=== PATIENT | male | born 1970 | race Caucasian/White ===

== ENCOUNTER 2018-11-25 12:17 | Emergency (ER) | payer SELFPAY ==
[~2018-11-25] VITALS: Ht 177.8 cm; Wt 74.7 kg
[2018-11-25 12:30] VITALS: BP 147/92; PULSE 18; RESP 20; Ht 177.8 cm; Wt 74.7 kg
== END 2018-11-25 18:26 | disposition left against medical advice (07) ==
LOC: E/R 12:17
DX: Z53.21 Procedure and treatment not carried out due to patient leaving prior to being seen by health care provider (principal)

== ENCOUNTER 2018-11-28 08:53 | Emergency (ER) | payer SELFPAY ==
[~2018-11-28] VITALS: Ht 182.9 cm; Wt 70.0 kg
[2018-11-28 09:01] VITALS: BP 140/96; PULSE 84; RESP 16; Ht 182.9 cm; Wt 70.0 kg
== END 2018-11-28 10:16 | disposition left against medical advice (07) ==
LOC: FTE 08:53
DX: Z53.21 Procedure and treatment not carried out due to patient leaving prior to being seen by health care provider (principal)

== ENCOUNTER 2018-12-06 22:20 | Emergency (ER) | payer SELFPAY ==
[~2018-12-06] VITALS: Ht 177.8 cm; Wt 74.6 kg
[2018-12-06 22:22] VITALS: BP 145/77; PULSE 115; RESP 19; Ht 177.8 cm; Wt 74.6 kg
== END 2018-12-06 23:09 | disposition left against medical advice (07) ==
LOC: FTE 22:20
DX: Z53.21 Procedure and treatment not carried out due to patient leaving prior to being seen by health care provider (principal)

== ENCOUNTER 2018-12-16 01:26 | Emergency (ER) | payer SELFPAY | END 2018-12-16 01:41 | disposition left against medical advice (07) | LOC: E/R 01:26 | DX: Z53.21 Procedure and treatment not carried out due to patient leaving prior to being seen by health care provider (principal) ==

== ENCOUNTER 2019-01-05 22:48 | Emergency (ER) | payer SELFPAY | END 2019-01-05 22:50 | disposition left against medical advice (07) | LOC: E/R 22:48 | DX: Z53.21 Procedure and treatment not carried out due to patient leaving prior to being seen by health care provider (principal) ==

== ENCOUNTER 2019-01-09 18:01 | Emergency (ER) | payer SELFPAY | END 2019-01-09 18:45 | disposition left against medical advice (07) | LOC: E/R 18:01 | DX: Z53.21 Procedure and treatment not carried out due to patient leaving prior to being seen by health care provider (principal) ==

== ENCOUNTER 2019-01-11 13:02 | Emergency (ER) | payer SELFPAY ==
[~2019-01-11] VITALS: Ht 175.3 cm; Wt 76.3 kg
[2019-01-11 13:13] VITALS: BP 153/81; PULSE 105; RESP 18; Ht 175.3 cm; Wt 76.3 kg
== END 2019-01-12 00:08 | disposition left against medical advice (07) ==
LOC: E/R 13:02
DX: Z53.21 Procedure and treatment not carried out due to patient leaving prior to being seen by health care provider (principal)

== ENCOUNTER 2019-01-12 11:12 | Emergency (ER) | payer MEDICARE, OTHER ==
[~2019-01-12] VITALS: Wt 80.0 kg
[2019-01-12 11:37] VITALS: Wt 80.0 kg
--- NOTE | 2019-01-12 13:40 | ERD ---
ER Documentation Chief Complaint Chief Complaint HERE YESTERDAY, WANTS "TO HAVE CHECK UP", BIZZARRE BEHAVIOR, NOT SUICIDAL HPI This is a 48-year-old male who is here because he wants a checkup. He says is been feeling a little bit tired and wants to get checked out to make sure his blood is okay. He is asking for referral from me to a half-way so he can have some more to stay. He has no headache chest pain shortness of breath no fever cough no abdominal pain no GI symptoms no neurological symptoms ROS All systems reviewed and are negative except as per history of present illness. Medications Home Meds No Active Prescriptions or Reported Meds Allergies Allergies: Coded Allergies: risperidone (Verified Allergy, Unknown, 01/12/19) PMhx/Soc Medical and Surgical Hx: pt denies Surgical Hx History of Surgery: No Anesthesia Reaction: No Hx Neurological Disorder: No Hx Respiratory Disorders: No Hx Cardiac Disorders: No Hx Psychiatric Problems: Yes (pt on psych medications does not state for what) Hx Miscellaneous Medical Probl: No Hx Substance Use: No Hx Tobacco Use: Yes (1pack/day) Smoking Status: Current every day smoker FmHx Family History: No coronary disease Physical Exam Vitals Vital Signs Date Temp Pulse Resp B/P (MAP) Pulse Ox O2 O2 Flow FiO2 Time Delivery Rate 01/12/19 98.6 91 20 128/99 100 Room Air 12:28 (109) 01/12/19 98.6 99 18 139/78 99 11:37 (98) Physical Exam Const: Well-developed, well-nourished Head: Atraumatic, normocephalic Eyes: Normal Conjunctiva, PERRLA, EOMI, normal sclera, no nystagmus ENT: Normal External Ears, Nose and Mouth, moist mucus membranes. Neck: Full range of motion. No meningismus, no lymphadenopathy. Resp: Clear to auscultation bilaterally, no wheezing, rhonchi, rales Cardio: Regular rate and rhythm, no murmurs, S1 S2 present Abd: Soft, non tender x 4, non distended. Normal bowel sounds, no guarding or rebound, no pulsitile abdominal masses or bruits Skin: No petechiae or rashes, no ecchymosis , no maculopapular rash Back: No midline or flank tenderness Ext: No cyanosis, or edema, FROM x 4, normal inspection, neurovascularly intact x 4 Neur: Awake and alert, STR 5/5 x 4, sensation intact x 4, no focal findings, cerebellum intact Psych: Normal Mood and Affect Result Diagram: 01/12/19 1225 01/12/19 1225 Results 24 hrs Laboratory Tests Test 01/12/19 12:25 White Blood Count 11.3 10^3/ul Red Blood Count 5.75 10^6/ul Hemoglobin 16.7 g/dl Hematocrit 48.9 % Mean Corpuscular Volume 85.0 fl Mean Corpuscular Hemoglobin 29.0 pg Mean Corpuscular Hemoglobin Concent 34.2 g/dl Red Cell Distribution Width 14.1 % Platelet Count 284 10^3/UL Mean Platelet Volume 9.1 fl Immature Granulocytes % 0.500 % Neutrophils % 66.6 % Lymphocytes % 22.0 % Monocytes % 8.1 % Eosinophils % 2.0 % Basophils % 0.8 % Nucleated Red Blood Cells % 0.0 /100WBC Immature Granulocytes # 0.060 10^3/ul Neutrophils # 7.5 10^3/ul Lymphocytes # 2.5 10^3/ul Monocytes # 0.9 10^3/ul Eosinophils # 0.2 10^3/ul Basophils # 0.1 10^3/ul Nucleated Red Blood Cells # 0.0 10^3/ul Sodium Level 143 mmol/L Potassium Level 4.3 mmol/L Chloride Level 111 mmol/L Carbon Dioxide Level 24 mmol/L Anion Gap 8 Blood Urea Nitrogen 29 mg/dl Creatinine 1.72 mg/dl Est Glomerular Filtrat Rate mL/min 42 mL/min Glucose Level 103 mg/dl Calcium Level 10.1 mg/dl Total Bilirubin 0.3 mg/dl Direct Bilirubin 0.00 mg/dl Indirect Bilirubin 0.3 mg/dl Aspartate Amino Transf (AST/SGOT) 24 IU/L Alanine Aminotransferase (ALT/SGPT) 12 IU/L Alkaline Phosphatase 106 IU/L Troponin I < 0.012 ng/ml Total Protein 8.6 g/dl Albumin 4.5 g/dl Globulin 4.10 g/dl Albumin/Globulin Ratio 1.09 Procedures/MDM Patient's labs are relatively unremarkable he does have bit of prerenal azotemia. Advised him to drink more water. Will discharge home Departure Diagnosis: Primary Impression: Fatigue Fatigue type: unspecified Qualified Codes: R53.83 - Other fatigue Condition: Stable Patient Instructions: Generalized Weakness Additional Instructions: please drink more water KALE MARROQUIN DO January 12, 2019 13:40
[2019-01-12 14:39] VITALS: BP 122/82; PULSE 90; RESP 20
== END 2019-01-12 14:42 | disposition home or self-care (01) ==
LOC: E/R 11:12
DX: R53.83 Other fatigue (principal); F17.210 Nicotine dependence, cigarettes, uncomplicated
CPT/HCPCS: 36415; 80053; 84484; 85025; 99283

== ENCOUNTER 2019-01-13 15:02 | Emergency (ER) | payer MEDICARE ==
[~2019-01-13] VITALS: Wt 73.8 kg
[2019-01-13 15:44] VITALS: BP 140/94; PULSE 95; RESP 20
--- NOTE | 2019-01-13 20:56 | ERD ---
ER Documentation Chief Complaint Chief Complaint requesting STD workup; denies symptoms, unsure of GF's symptoms HPI 48-year-old male presenting to the emergency department requesting STD s creening. He has multiple female sexual partners and he is unsure of their status. He denies any penile discharge, fevers, chills, lesions on the penis or other symptoms at this time. ROS All systems reviewed and are negative except as per history of present illness. Medications Home Meds No Active Prescriptions or Reported Meds Allergies Allergies: Coded Allergies: risperidone (Verified Allergy, Unknown, 01/12/19) PMhx/Soc History of Surgery: No Anesthesia Reaction: No Hx Neurological Disorder: No Hx Respiratory Disorders: No Hx Cardiac Disorders: No Hx Psychiatric Problems: Yes (pt on psych medications does not state for what) Hx Miscellaneous Medical Probl: No Hx Alcohol Use: No Hx Substance Use: No Hx Tobacco Use: Yes (1pack/day) Smoking Status: Current every day smoker FmHx Family History: No diabetes Physical Exam Vitals Vital Signs Date Temp Pulse Resp B/P (MAP) Pulse Ox O2 O2 Flow FiO2 Time Delivery Rate 01/13/19 98.2 95 20 140/94 97 15:44 (109) Physical Exam Const: No acute distress Head: Atraumatic Eyes: Normal Conjunctiva ENT: Normal External Ears, Nose and Mouth. Neck: Full range of motion. No meningismus. Resp: No respiratory distress. Skin: No petechiae or rashes Ext: No cyanosis, or edema Neur: Awake and alert Psych: Normal Mood and Affect Procedures/MDM 48-year-old male presenting to the emergency department requesting STD screening. He will be tested for chlamydia and gonorrhea. He is asymptomatic and did not require prophylactic treatment at this time. He is stable and appropriate for discharge and further outpatient management with his primary care physician. He was instructed to return to the department immediately if he has any new or concerning symptoms. Patient's blood pressure was elevated (>120/80) but appears stable without evidence of hypertension emergency or urgency. The patient is to follow-up and pursue outpatient monitoring and therapy with their primary care physician within 1 week and return immediately if they have any new, worsening, or concerning symptoms. Departure Diagnosis: Primary Impression: Encounter for laboratory test Condition: Fair Patient Instructions: What Are Sexually Transmitted Diseases (STDs)? Referrals: COMM[facility] YOU HAVE RECEIVED A MEDICAL SCREENING EXAM AND THE RESULTS INDICATE THAT YOU DO NOT HAVE A CONDITION THAT REQUIRES URGENT TREATMENT IN THE EMERGENCY DEPARTMENT. FURTHER EVALUATION AND TREATMENT OF YOUR CONDITION CAN WAIT UNTIL YOU ARE SEEN IN YOUR DOCTORS OFFICE WITHIN THE NEXT 1-2 DAYS. IT IS YOUR RESPONSIBILITY TO MAKE AN APPOINTMENT FOR FOLOW-UP CARE. IF YOU HAVE A PRIMARY DOCTOR --you should call your primary doctor and schedule an appointment IF YOU DO NOT HAVE A PRIMARY DOCTOR YOU CAN CALL OUR PHYSICIAN REFERRAL HOTLINE AT IF YOU CAN NOT AFFORD TO SEE A PHYSICIAN YOU CAN CHOSE FROM THE FOLLOWING [facility] CLINICS [facility] [address] [facility]. [facility] [address] [facility] [place] [address] [facility] [address] [facility]. [facility] [address] [facility] [facility] [address] Additional Instructions: Call your primary care doctor TOMORROW for an appointment during the next 1-2 days.See the doctor sooner or return here if your condition worsens before your appointment time. HERIBERTO LUCAS PA-C January 13, 2019 20:56
== END 2019-01-13 17:20 | disposition home or self-care (01) ==
LOC: FTE 15:02
DX: Z11.3 Encounter for screening for infections with a predominantly sexual mode of transmission (principal); F17.210 Nicotine dependence, cigarettes, uncomplicated; Z00.00 Encounter for general adult medical examination without abnormal findings
CPT/HCPCS: 87591; 99283

== ENCOUNTER 2019-01-14 11:17 | Emergency (ER) | payer MEDICARE ==
[~2019-01-14] VITALS: Ht 180.3 cm; Wt 74.5 kg
[2019-01-14 11:26] VITALS: Ht 180.3 cm; Wt 74.5 kg
[2019-01-14 12:51] VITALS: BP 133/91; PULSE 82; RESP 18
--- NOTE | 2019-01-14 12:51 | ERD ---
ER Documentation Chief Complaint Chief Complaint PT CAME FOR CHECK BP AND FOR GENERAL CHECKUP; NO CP OR SOB. HPI 48 yo M who presents to the ED for social worker aide consultation. This the p atient's third visit in several days for nonspecific social related issues. The patient states that he currently lives at a sober living facility. He states that he would like to be evaluated for correction placement. The patient cannot articulate why he needs correction needs. The patient was seen recently with social worker aide evaluation and deemed not appropriate for intermediate facility placement. Patient denies any suicidal or homicidal ideation. He has no other complaints. He is requesting a blood draw though he had this several days ago. Patient otherwise has no complaints. He denies any fevers, chills, chest pain, shortness of breath, headache. ROS All systems reviewed and are negative except as per history of present illness. Medications Home Meds No Active Prescriptions or Reported Meds Allergies Allergies: Coded Allergies: risperidone (Verified Allergy, Unknown, 01/14/19) PMhx/Soc History of Surgery: No Anesthesia Reaction: No Hx Neurological Disorder: No Hx Respiratory Disorders: No Hx Cardiac Disorders: No Hx Psychiatric Problems: Yes (pt on psych medications does not state for what) Hx Miscellaneous Medical Probl: No Hx Alcohol Use: No Hx Substance Use: No Hx Tobacco Use: Yes (1pack/day) FmHx Family History: No diabetes Physical Exam Vitals Vital Signs Date Temp Pulse Resp B/P (MAP) Pulse Ox O2 O2 Flow FiO2 Time Delivery Rate 01/14/19 97.3 82 18 133/91 95 Room Air 12:51 (105) 01/14/19 97.3 89 18 142/89 93 11:26 (106) Physical Exam General: Disheveled, odd affect, no distress Head: Normocephalic, atraumatic. Eyes: EOM intact ENT: Moist mucous membranes Neck: Full ROM Respiratory: No respiratory distress Cardiovascular: Well perfused distally Abdominal: Nondistended : Deferred MSK: No edema, no unilateral swelling, 5/5 strength Neurologic: Alert and oriented, moving all extremities, normal speech, steady gait Skin: No rash Psych: Odd affect, occasional bizarre thought process, no SI or HI Procedures/MDM Patient had recent laboratory testing that showed mild renal insufficiency but otherwise no acute process. I do not believe the patient has an emergent medical condition at this time. A medical screening examination has been performed. No signs or symptoms concerning for emergent medical condition exists. This appears to be a social worker aide reason for visit. director of business services have been consulted to evaluate the patient. Patient does appear to have some underlying psychiatric issues but no signs or symptoms concerning for acute psychosis. He is not a danger to himself or others. The patient left the emergency room prior to seeing social worker aide. He was not a danger to himself or others. He had the right to leave. Departure Diagnosis: Primary Impression: Encounter for medical screening examination Condition: MARYANN Duenas MD January 14, 2019 12:51
== END 2019-01-14 14:02 | disposition left against medical advice (07) ==
LOC: FTE 11:17 → E/R 14:02
DX: Z00.00 Encounter for general adult medical examination without abnormal findings (principal); F17.210 Nicotine dependence, cigarettes, uncomplicated
CPT/HCPCS: 99282

== ENCOUNTER 2019-01-17 12:11 | Emergency (ER) | payer MEDICARE ==
[~2019-01-17] VITALS: Wt 74.4 kg
[2019-01-17 12:15] VITALS: BP 150/84; PULSE 102; RESP 17
--- NOTE | 2019-01-17 12:32 | ERD ---
ER Documentation Chief Complaint Chief Complaint 'I have a few questions" HPI This is a 48-year-old gentleman who is well-known to this emergency department with multiple frequent visits, psychosocial evaluations who presents to the emergency room stating that he just has a question. Patient states "I just want to get some information about a lobotomy. Is it still legal ". The patient otherwise has no complaints. He denies any suicidal homicidal ideations he denies any hearing voices. He states that he is a stable living situation. He denies any recent drugs or alcohol. Patient states that he is not hungry and feels well and at his baseline. ROS All systems reviewed and are negative except as per history of present illness. Medications Home Meds No Active Prescriptions or Reported Meds Allergies Allergies: Coded Allergies: risperidone (Verified Allergy, Unknown, 01/14/19) PMhx/Soc History of Surgery: No Anesthesia Reaction: No Hx Neurological Disorder: No Hx Respiratory Disorders: No Hx Cardiac Disorders: No Hx Psychiatric Problems: Yes (pt on psych medications does not state for what) Hx Miscellaneous Medical Probl: No Hx Alcohol Use: No Hx Substance Use: No Hx Tobacco Use: Yes (1pack/day) FmHx Family History: No diabetes Physical Exam Vitals Vital Signs Date Temp Pulse Resp B/P (MAP) Pulse Ox O2 O2 Flow FiO2 Time Delivery Rate 01/17/19 97.4 102 17 150/84 99 12:15 (106) Physical Exam General: Well developed, well nourished, no acute distress Head: Normocephalic, atraumatic. Eyes: Pupils equally reactive, EOM intact ENT: Moist mucous membranes Neck: Supple, no lymphadenopathy Respiratory: Lungs clear bilaterally, no distress Cardiovascular: RRR, no murmurs, rubs, or gallops Abdominal: Soft, non-tender, non-distended, no peritoneal signs : Deferred MSK: No edema, no unilateral swelling, 5/5 strength Neurologic: Alert and oriented, moving all extremities, normal speech, no focal weakness, no cerebellar signs Skin: No rash Psych: Occasionally disorganized thought process but moderate insight, denies suicidal or homicidal ideation Procedures/MDM The patient presents asking odd medical questions. The patient has a history of psychiatric illness. Clinically however the patient does not exhibit any signs or symptoms concerning for acute psychosis. While the patient has an occasional disorganized thought process he is otherwise well kempt, denying any suicidal or homicidal ideations. The patient has had multiple social welfare clerk evaluations in the last several days as he is asked for alf placement in the past. The patient has a stable living situation at this time. Patient was offered food and drink he refused. Once I talked to the patient about his questions he states that his needs have been met and he would like to leave. Patient again does not appear to be a danger to himself or others. Patient has refused social welfare clerk resources today. The patient is safe for discharge. He got up and left prior to discharge paperwork. Departure Diagnosis: Primary Impression: Encounter for medical screening examination Condition: Stable Patient Instructions: Medical Screening Exam, Nonurgent Referrals: [facility] YOU HAVE RECEIVED A MEDICAL SCREENING EXAM AND THE RESULTS INDICATE THAT YOU DO NOT HAVE A CONDITION THAT REQUIRES URGENT TREATMENT IN THE EMERGENCY DEPARTMENT. FURTHER EVALUATION AND TREATMENT OF YOUR CONDITION CAN WAIT UNTIL YOU ARE SEEN IN YOUR DOCTORS OFFICE WITHIN THE NEXT 1-2 DAYS. IT IS YOUR RESPONSIBILITY TO MAKE AN APPOINTMENT FOR FOLOW-UP CARE. IF YOU HAVE A PRIMARY DOCTOR --you should call your primary doctor and schedule an appointment IF YOU DO NOT HAVE A PRIMARY DOCTOR YOU CAN CALL OUR PHYSICIAN REFERRAL HOTLINE AT IF YOU CAN NOT AFFORD TO SEE A PHYSICIAN YOU CAN CHOSE FROM THE FOLLOWING [facility] [address] [facility]. [facility] [address] [facility] [facility] [address] [facility]. [facility] [address] [facility]. [facility] [address] [facility]. [facility]. [address] [facility]. [facility] YOU HAVE RECEIVED A MEDICAL SCREENING EXAM AND THE RESULTS INDICATE THAT YOU DO NOT HAVE A CONDITION THAT REQUIRES URGENT TREATMENT IN THE EMERGENCY DEPARTMENT. FURTHER EVALUATION AND TREATMENT OF YOUR CONDITION CAN WAIT UNTIL YOU ARE SEEN IN YOUR DOCTORS OFFICE WITHIN THE NEXT 1-2 DAYS. IT IS YOUR RESPONSIBILITY TO MAKE AN APPOINTMENT FOR FOLOW-UP CARE. IF YOU HAVE A PRIMARY DOCTOR --you should call your primary doctor and schedule and appointment IF YOU DO NOT HAVE A PRIMARY DOCTOR YOU CAN CALL OUR PHYSICIAN REFERRAL HOTLINE AT . IF YOU CAN NOT AFFORD TO SEE A PHYSICIAN YOU CAN CHOSE FROM THE FOLLOWING [facility] INSTITUTIONS: [facility] [address] [place] [address] [facility] [address] [place] [address] [facility] [address] [place] [address] Additional Instructions: Call your primary care doctor TOMORROW for an appointment during the next 1 WEEK.Tell the receptionist secretary that you were referred from this facility.See the doctor sooner or return here if your condition worsens before your appointment time. MARYANN PARKER MD January 17, 2019 12:32
== END 2019-01-17 12:35 | disposition left against medical advice (07) ==
LOC: E/R 12:11
DX: Z00.00 Encounter for general adult medical examination without abnormal findings (principal); F17.210 Nicotine dependence, cigarettes, uncomplicated
CPT/HCPCS: 99282

== ENCOUNTER 2019-01-19 17:15 | Emergency (ER) | payer MEDICARE ==
[~2019-01-19] VITALS: Ht 185.4 cm; Wt 75.0 kg
[2019-01-19 17:40] VITALS: BP 152/93; PULSE 97; RESP 18; Ht 185.4 cm; Wt 75.0 kg
--- NOTE | 2019-01-19 18:01 | ERD ---
ER Documentation Chief Complaint Chief Complaint INDIGESTION WITH NAUSEA, WITHDRAWL FROM ETOH/METH/HEROIN HPI 48-year-old male presents with multiple visits over the last 1 to 2 weeks. He has an assortment of medical question. He has a history of unspecified psychiatric illness. Denies any homicidal or suicidal ideation. He states that he intermittently does drugs but denies any recent use. He is declining offer of psychiatric care. He has multiple questions regarding brain surgery, qualifications for medical services. Recent lab results show that he has renal insufficiency otherwise no acute abnormalities. ROS All systems reviewed and are negative except as per history of present illness. Medications Home Meds No Active Prescriptions or Reported Meds Allergies Allergies: Coded Allergies: risperidone (Verified Allergy, Unknown, 01/14/19) PMhx/Soc History of Surgery: No Anesthesia Reaction: No Hx Neurological Disorder: No Hx Respiratory Disorders: No Hx Cardiac Disorders: No Hx Psychiatric Problems: Yes (pt on psych medications does not state for what) Hx Miscellaneous Medical Probl: No Hx Alcohol Use: No Hx Substance Use: No Hx Tobacco Use: Yes (1pack/day) FmHx Family History: No diabetes, No coronary disease, No other Physical Exam Vitals Vital Signs Date Temp Pulse Resp B/P (MAP) Pulse Ox O2 O2 Flow FiO2 Time Delivery Rate 01/19/19 99.0 97 18 152/93 96 17:40 (112) Physical Exam Const: No acute distress Head: Atraumatic Eyes: Normal Conjunctiva ENT: Normal External Ears, Nose and Mouth. Neck: Full range of motion. No meningismus. Resp: Clear to auscultation bilaterally Cardio: Regular rate and rhythm, no murmurs Abd: Soft, non tender, non distended. Normal bowel sounds Skin: No petechiae or rashes Back: No midline or flank tenderness Ext: No cyanosis, or edema Neur: Awake and alert Psych: Normal Mood and Affect. Tangential questions and disorganized thought process otherwise acting appropriately. Procedures/MDM Patient presents with multiple nonspecific medical questions. He is otherwise able to navigate the community. He is not asking for food, states that he has a dwelling and resources with fulfillment of his basic social needs as well as food, AA and NA. Medical screening shows no acute illness or concerning signs or symptoms. Will be discharged home with recommendations for primary care follow-up and was given resources on this. He is encouraged to recheck with any new or worsening symptoms. The patient was stable with no new complaints during the ER course. Clinically, there is no current evidence to suggest meningitis, sepsis, acute abdomen, pneumonia, stroke, acute coronary syndrome, pulmonary embolism, aortic dissection or any other emergent condition appearing to require further evaluation or hospitalization. Patient counseled regarding my diagnostic impression and care plan. Prior to discharge all questions answered. Pt agrees with treatment plan and understands strict return precautions. Pt is instructed to follow up with primary care provider within 24-48 hours. Precautionary instructions provided including instructions to return to the ER if not improving or for any worsening or changing symptoms or concerns. Disclaimer: Inadvertent spelling and grammatical errors are likely due to EHR/dictation software use and do not reflect on the overall quality of patient care. Also, please note that the electronic time recorded on this note does not necessarily reflect the actual time of the patient encounter. Departure Diagnosis: Primary Impression: Encounter for medical screening examination Condition: Stable Patient Instructions: Renal Insufficiency Referrals: [facility] YOU HAVE RECEIVED A MEDICAL SCREENING EXAM AND THE RESULTS INDICATE THAT YOU DO NOT HAVE A CONDITION THAT REQUIRES URGENT TREATMENT IN THE EMERGENCY DEPARTMENT. FURTHER EVALUATION AND TREATMENT OF YOUR CONDITION CAN WAIT UNTIL YOU ARE SEEN IN YOUR DOCTORS OFFICE WITHIN THE NEXT 1-2 DAYS. IT IS YOUR RESPONSIBILITY TO MAKE AN APPOINTMENT FOR FOLOW-UP CARE. IF YOU HAVE A PRIMARY DOCTOR --you should call your primary doctor and schedule an appointment IF YOU DO NOT HAVE A PRIMARY DOCTOR YOU CAN CALL OUR PHYSICIAN REFERRAL HOTLINE AT IF YOU CAN NOT AFFORD TO SEE A PHYSICIAN YOU CAN CHOSE FROM THE FOLLOWING [facility] CLINICS [facility] [address] [facility] [address] [facility] [address] [facility] [address] [facility] [address] [facility]. [facility]. [address] Additional Instructions: No signs of acute illness today. Recommend primary care follow-up. Drink plenty of fluids at home. Return for fevers, chest pain, difficulty breathing, new worsening symptoms. MAXINE KAN MD January 19, 2019 18:01
== END 2019-01-19 18:26 | disposition home or self-care (01) ==
LOC: E/R 17:15
DX: Z00.00 Encounter for general adult medical examination without abnormal findings (principal); F17.210 Nicotine dependence, cigarettes, uncomplicated
CPT/HCPCS: 99282

== ENCOUNTER 2019-02-02 11:25 | Emergency (ER) | payer MEDICARE ==
[~2019-02-02] VITALS: Ht 180.3 cm; Wt 80.4 kg
[2019-02-02 11:27] VITALS: Ht 180.3 cm; Wt 80.4 kg
[2019-02-02 12:10] VITALS: BP 155/85; PULSE 78; RESP 18
--- NOTE | 2019-02-02 14:02 | ERD ---
ER Documentation Chief Complaint Chief Complaint fever & rash 5 - 6 yrs HPI This is a 48-year-old gentleman well-known to this provider this emergency department who presents for evaluation. He states that he just wants to get checked out. He states that he is had a rash for at least 5 to 6 years. He also states that he has had a fever constantly for 5 or 6 years. When he was told that he has no fever at triage she states "oh never mind I just wanted to come get checked out". The patient otherwise has no complaints. He denies any chest pain or shortness of breath, no cough. ROS All systems reviewed and are negative except as per history of present illness. Medications Home Meds No Active Prescriptions or Reported Meds Allergies Allergies: Coded Allergies: risperidone (Verified Allergy, Unknown, 01/14/19) PMhx/Soc History of Surgery: No Anesthesia Reaction: No Hx Neurological Disorder: No Hx Respiratory Disorders: No Hx Cardiac Disorders: No Hx Psychiatric Problems: Yes (pt on psych medications does not state for what) Hx Miscellaneous Medical Probl: No Hx Alcohol Use: No Hx Substance Use: No Hx Tobacco Use: Yes (1pack/day) Smoking Status: Current every day smoker FmHx Family History: No diabetes Physical Exam Vitals Vital Signs Date Temp Pulse Resp B/P (MAP) Pulse Ox O2 O2 Flow FiO2 Time Delivery Rate 02/02/19 98.0 78 18 155/85 98 Room Air 12:10 (108) 02/02/19 97.9 81 18 140/61 97 11:27 (87) Physical Exam General: Well developed, well nourished, no acute distress Head: Normocephalic, atraumatic. Eyes: Pupils equally reactive, EOM intact ENT: Moist mucous membranes Neck: Supple, no lymphadenopathy Respiratory: Lungs clear bilaterally, no distress Cardiovascular: RRR, no murmurs, rubs, or gallops Abdominal: Soft, non-tender, non-distended, no peritoneal signs : Deferred MSK: No edema, no unilateral swelling, 5/5 strength Neurologic: Alert and oriented, moving all extremities, normal speech, no focal weakness, no cerebellar signs Skin: No rash Psych: Flattened affect Procedures/MDM The patient has no rash on clinical exam. He has no fever. The patient has been seen recently with no fever and otherwise stable baseline vital signs. The patient's presentation is consistent with underlying psychiatric illness, malingering. Patient exhibits no signs or symptoms concerning for emergent medical condition. Patient was provided reassurance, offered food. He was offered social sciences research scientist resources but refused. At this point the patient is extremely well-appearing and can be safely discharged. The patient does not have an identifiable emergent medical condition that warrants inpatient hospitalization at this time. The patient is deemed safe for discharge with outpatient follow-up. We discussed follow up with the patient's primary care doctor within 24 to 48 hours as needed. We also discussed return to the emergency room for worsening symptoms or worsening condition. Outpatient referral: None required Departure Diagnosis: Primary Impression: Encounter for medical screening examination Condition: Good Patient Instructions: Medical Screening Exam, Nonurgent Referrals: [facility] YOU HAVE RECEIVED A MEDICAL SCREENING EXAM AND THE RESULTS INDICATE THAT YOU DO NOT HAVE A CONDITION THAT REQUIRES URGENT TREATMENT IN THE EMERGENCY DEPARTMENT. FURTHER EVALUATION AND TREATMENT OF YOUR CONDITION CAN WAIT UNTIL YOU ARE SEEN IN YOUR DOCTORS OFFICE WITHIN THE NEXT 1-2 DAYS. IT IS YOUR RESPONSIBILITY TO MAKE AN APPOINTMENT FOR FOLOW-UP CARE. IF YOU HAVE A PRIMARY DOCTOR --you should call your primary doctor and schedule an appointment IF YOU DO NOT HAVE A PRIMARY DOCTOR YOU CAN CALL OUR PHYSICIAN REFERRAL HOTLINE AT IF YOU CAN NOT AFFORD TO SEE A PHYSICIAN YOU CAN CHOSE FROM THE FOLLOWING [facility] [address] [facility]. [facility] [address] [facility]. [facility] [place] [address] [facility] [facility] [address] [facility]. [facility] [address] [facility]. [facility]. [address] [facility]. [facility] YOU HAVE RECEIVED A MEDICAL SCREENING EXAM AND THE RESULTS INDICATE THAT YOU DO NOT HAVE A CONDITION THAT REQUIRES URGENT TREATMENT IN THE EMERGENCY DEPARTMENT. FURTHER EVALUATION AND TREATMENT OF YOUR CONDITION CAN WAIT UNTIL YOU ARE SEEN IN YOUR DOCTORS OFFICE WITHIN THE NEXT 1-2 DAYS. IT IS YOUR RESPONSIBILITY TO MAKE AN APPOINTMENT FOR FOLOW-UP CARE. IF YOU HAVE A PRIMARY DOCTOR --you should call your primary doctor and schedule and appointment IF YOU DO NOT HAVE A PRIMARY DOCTOR YOU CAN CALL OUR PHYSICIAN REFERRAL HOTLINE AT . IF YOU CAN NOT AFFORD TO SEE A PHYSICIAN YOU CAN CHOSE FROM THE FOLLOWING [facility] INSTITUTIONS: [facility] [address] [place] [address] [facility] [address] [place] [address] [facility] + [facility] [address] [place] [address] Additional Instructions: Call your primary care doctor TOMORROW for an appointment during the next 1 WEEK.Tell the medical secretary teacher that you were referred from this facility.See the doctor sooner or return here if your condition worsens before your appointment time. MARYANN PARKER MD Feb 02, 2019 14:02
== END 2019-02-02 12:18 | disposition home or self-care (01) ==
LOC: E/R 11:25
DX: Z00.00 Encounter for general adult medical examination without abnormal findings (principal); F17.210 Nicotine dependence, cigarettes, uncomplicated
CPT/HCPCS: 99282